=== PATIENT | male | born 1995 | race Hispanic/Latino ===

== ENCOUNTER 2021-06-03 07:33 | Emergency (ER) | payer OTHER ==
[~2021-06-03] VITALS: Ht 177.8 cm; Wt 86.2 kg
[2021-06-03 07:58] VITALS: BP 137/82
[2021-06-03] MEDS ORDERED: IBUPROFEN 600 MG TABLET PO ONE (08:00)
[2021-06-03] MEDS ORDERED: ACETAMINOPHEN WITH CODEINE 1 TAB TAB PO ONE (08:00)
[2021-06-03] MEDS ORDERED: ACET1TAB25 PO (08:31)
[2021-06-03] MEDS ORDERED: IBUP-2070 PO (08:31)
== END 2021-06-03 09:05 | disposition home or self-care (01) ==
LOC: EDH 07:33
DX: S93.601A Unspecified sprain of right foot, initial encounter (principal); W01.0XXA Fall on same level from slipping, tripping and stumbling without subsequent striking against object, initial encounter; Z79.1 Long term (current) use of non-steroidal anti-inflammatories (NSAID); Y93.89 Activity, other specified; Y92.89 Other specified places as the place of occurrence of the external cause; Y99.8 Other external cause status
CPT/HCPCS: 73610; 73630